=== PATIENT | female | born 1950 | race Hispanic/Latino ===

== ENCOUNTER 2020-09-24 12:43 | Observation (INO) | payer MEDICARE ==
[~2020-09-24] VITALS: Ht 152.4 cm; Wt 64.0 kg
[2020-09-24 13:24] LABS: BASOPHILS % (AUTO) 0.6 % (0.0-5.0); EOSINOPHILS % (AUTO) 1.1 % (0.0-8.0); HEMATOCRIT 41.2 % (36-48); LYMPHOCYTES % (AUTO) 14.4 % (21.0-51.0); MEAN CORPUSCULAR HEMOGLOBIN 30.5 pg (27.0-33.0); MEAN CORPUSCULAR HGB CONC 34.2 g/dL (32.0-36.0); MONOCYTES % (AUTO) 11.7 % (3.0-13.0); PLATELET COUNT (AUTO) 74 K/uL (130-400); RED BLOOD CELL COUNT(AUTO) 4.63 MIL/uL (4.00-5.50); RED CELL DISTRIBUTION WIDTH 13.4 % (11.0-15.5); WHITE BLOOD COUNT (AUTO) 5.4 K/uL (4.8-10.8)
[2020-09-24 13:31] LABS: INR 1.14 (0.85-1.15); PROTHROMBIN TIME 12.3 SEC (9.6-11.6)
[2020-09-24 13:33] LABS: PARTIAL THROMBOPLASTIN TIME 27.7 SEC (26.3-35.5)
[2020-09-24 13:36] LABS: CREATININE 0.9 mg/dL (0.5-1.5); POTASSIUM 3.7 mmol/L (3.5-5.1)
[2020-09-24 13:40] LABS: ALBUMIN 3.6 g/dL (3.5-5.0); BILIRUBIN,TOTAL 0.6 mg/dL (0.2-1.0); TOTAL PROTEIN, SERUM 8.8 g/dL (6.0-8.3)
[2020-09-24] MEDS ORDERED: IOHEXOL-350 75 ML VIAL IV ONE (14:47)
[2020-09-24] MEDS ORDERED: LABETALOL HCL 5 MG/ML 20ML VIAL IV PRN (16:15)
[2020-09-24 16:25] LABS: APPEARANCE,URINE Clear (CLEAR); BILIRUBIN,URINE Negative (NEGATIVE); COLOR,URINE Yellow (YELLOW); GLUCOSE, URINE (UA) >=1000 mg/dL (NEGATIVE); KETONES,URINE Trace mg/dL (NEGATIVE); LEUKOCYTE ESTERASE ,URINE Negative (NEGATIVE); NITRATE,URINE Negative (NEGATIVE); OCCULT BLOOD,URINE Negative (NEGATIVE); PH,URINE 6.5 (5.0-8.0); PROTEIN,URINE POS 2+ mg/dL (NEGATIVE); UROBILINOGEN,URINE 0.2 mg/dL (0.2-1.0)
[2020-09-24 16:31] LABS: AMPHET/METH SCREEN,URINE NEGATIVE (NEGATIVE); BARBITURATE SCREEN, URINE NEGATIVE (NEGATIVE); BENZODIAZEPINES SCREEN,URINE NEGATIVE (NEGATIVE); CANNABINOID SCREEN,URINE NEGATIVE (NEGATIVE); COCAINE SCREEN,URINE NEGATIVE (NEGATIVE); OPIATE SCREEN,URINE NEGATIVE (NEGATIVE); PHENCYCLIDINE SCREEN,URINE NEGATIVE (NEGATIVE)
[2020-09-24 16:34] LABS: BACTERIA,URINE Rare /HPF (None Seen); RBC,URINE 0-1 /HPF (0-1); SQUAMOUS EPITHELIAL CELL,UR None Seen /HPF (0-2); WBC,URINE None Seen /HPF (0-1)
[2020-09-24] MEDS ORDERED: CLOPIDOGREL BISULFATE 75 MG TAB ONE (16:53)
[2020-09-24] MEDS ORDERED: CLOPIDOGREL BISULFATE 75 MG TAB PO SCH (17:30)
[2020-09-24 22:00] VITALS: BP 146/62
[2020-09-24] MEDS ORDERED: SITA1TAB6 PO (22:31)
[2020-09-24] MEDS ORDERED: LISI20TA24 PO (22:33)
[2020-09-24] MEDS ORDERED: ATORVAS (22:33)
[2020-09-24] MEDS ORDERED: GLYBURIDE (22:33)
[2020-09-25 04:00] VITALS: BP 114/57
[2020-09-25 06:22] LABS: BASOPHILS % (AUTO) 0.8 % (0.0-5.0); EOSINOPHILS % (AUTO) 3.3 % (0.0-8.0); HEMATOCRIT 40.8 % (36-48); MEAN CORPUSCULAR HEMOGLOBIN 29.9 pg (27.0-33.0); MEAN CORPUSCULAR HGB CONC 33.1 g/dL (32.0-36.0); MEAN CORPUSCULAR VOLUME 90.3 fL (79-99); MONOCYTES % (AUTO) 13.4 % (3.0-13.0); NEUTROPHILS % (AUTO) 51.3 % (40.0-77.0); PLATELET COUNT (AUTO) 74 K/uL (130-400); RED BLOOD CELL COUNT(AUTO) 4.52 MIL/uL (4.00-5.50); RED CELL DISTRIBUTION WIDTH 13.4 % (11.0-15.5); WHITE BLOOD COUNT (AUTO) 4.8 K/uL (4.8-10.8)
[2020-09-25 06:47] LABS: CREATININE 0.7 mg/dL (0.5-1.5); POTASSIUM 3.2 mmol/L (3.5-5.1)
[2020-09-25 06:58] LABS: HEMOGLOBIN A1C 8.5 % (4.0-6.0)
[2020-09-25] MEDS ORDERED: POTASSIUM CHLORIDE 20MEQ/100ML 100 ML IV PRN (07:00)
[2020-09-25] MEDS ORDERED: LIDOCAINE HCL-MPF 1% 2ML VIAL IV PRN (07:00)
[2020-09-25] MEDS: CLOPIDOGREL BISULFATE 75 MG TAB PO SCH (08:17)
[2020-09-25] MEDS: ASPIRIN 81MG TAB.CHEW PO SCH (08:17)
[2020-09-25 08:45] VITALS: BP 126/69
[2020-09-25 12:54] VITALS: BP 123/72
[2020-09-25] MEDS: INSULIN HUMULIN R 100 UNIT/ML 3ML SQ SCH ×2 (16:15→20:53)
[2020-09-25 17:52] VITALS: BP 118/71
[2020-09-25 20:11] VITALS: BP 131/75
[2020-09-25] MEDS: SITAGLIPTIN PHOS PO SCH (20:53)
[2020-09-25] MEDS: METFORMIN HCL PO SCH (20:53)
[2020-09-25 23:27] VITALS: BP 131/72
[2020-09-26 04:13] VITALS: BP 124/78
[2020-09-26 06:05] VITALS: BP 130/69
[2020-09-26] MEDS: INSULIN HUMULIN R 100 UNIT/ML 3ML SQ SCH ×2 (06:09→11:30)
[2020-09-26] MEDS: CLOPIDOGREL BISULFATE 75 MG TAB PO SCH (07:42)
[2020-09-26] MEDS: METFORMIN HCL PO SCH (07:42)
[2020-09-26] MEDS: SITAGLIPTIN PHOS PO SCH (07:42)
[2020-09-26] MEDS: ASPIRIN 81MG TAB.CHEW PO SCH (07:42)
[2020-09-26 10:58] VITALS: BP 142/78
== END 2020-09-26 13:28 | disposition home or self-care (01) ==
LOC: EDH 12:43 → EDHIP 16:07 → 4CH 21:01
PROVIDERS: ADMIT Internal Medicine; ATTEND Internal Medicine
DX: G45.9 Transient cerebral ischemic attack, unspecified (principal); R51.9 Headache, unspecified; E87.1 Hypo-osmolality and hyponatremia; E11.65 Type 2 diabetes mellitus with hyperglycemia; I10 Essential (primary) hypertension; E78.5 Hyperlipidemia, unspecified; I34.0 Nonrheumatic mitral (valve) insufficiency; Z90.710 Acquired absence of both cervix and uterus; Z98.51 Tubal ligation status; Z79.84 Long term (current) use of oral hypoglycemic drugs; Z79.899 Other long term (current) drug therapy
CPT/HCPCS: 36415 ×2; 70450; 70496; 70498; 70551; 71045; 80048; 80053; 80305; 81001; 82550; 82948 ×6; 83036; 83721; 84484; 85025 ×2; 85610; 85730; 92610; 93005; 93306; 93356; 97161; 99285; G0378 ×43; G8978; G8979; G8980; G8981; G8982; G8983; Q9967

== ENCOUNTER 2020-10-28 15:08 | Emergency (ER) | payer MEDICARE ==
[~2020-10-28 15:08] MED LIST: ATORVAS; GLYBURIDE; LISI20TA24 PO; SITA1TAB6 PO
[2020-10-28 15:51] LABS: BASOPHILS % (AUTO) 0.8 % (0.0-5.0); EOSINOPHILS % (AUTO) 1.7 % (0.0-8.0); HEMATOCRIT 42.7 % (36-48); LYMPHOCYTES % (AUTO) 41.2 % (21.0-51.0); MEAN CORPUSCULAR HEMOGLOBIN 29.9 pg (27.0-33.0); MEAN CORPUSCULAR HGB CONC 33.5 g/dL (32.0-36.0); MEAN CORPUSCULAR VOLUME 89.3 fL (79-99); MONOCYTES % (AUTO) 8.8 % (3.0-13.0); NEUTROPHILS % (AUTO) 47.5 % (40.0-77.0); PLATELET COUNT (AUTO) 112 K/uL (130-400); RED BLOOD CELL COUNT(AUTO) 4.78 MIL/uL (4.00-5.50); WHITE BLOOD COUNT (AUTO) 6.1 K/uL (4.8-10.8)
[2020-10-28] MEDS ORDERED: FAMOTIDINE/PF 20 MG/2 ML VIAL IV ONE (15:51)
[2020-10-28 15:57] LABS: CREATININE 0.9 mg/dL (0.5-1.5); POTASSIUM 3.7 mmol/L (3.5-5.1)
[2020-10-28 16:02] LABS: ALBUMIN 3.6 g/dL (3.5-5.0); BILIRUBIN,TOTAL 0.4 mg/dL (0.2-1.0); TOTAL PROTEIN, SERUM 9.4 g/dL (6.0-8.3)
== END 2020-10-28 18:35 | disposition home or self-care (01) ==
LOC: EDH 15:08
DX: K80.50 Calculus of bile duct without cholangitis or cholecystitis without obstruction (principal); E11.65 Type 2 diabetes mellitus with hyperglycemia; E86.0 Dehydration
CPT/HCPCS: 36415; 74176; 80053; 85025; 96374; 99284; J3490

== ENCOUNTER → 2022-05-01 | Outpatient (CLI) | payer MEDICARE ==
[2022-05-01 15:00] LABS: BASOPHILS % (AUTO) 0.8 % (0.0-5.0); EOSINOPHILS % (AUTO) 3.5 % (0.0-8.0); HEMATOCRIT 42.1 % (36-48); LYMPHOCYTES % (AUTO) 35.1 % (21.0-51.0); MEAN CORPUSCULAR HEMOGLOBIN 30.5 pg (27.0-33.0); MEAN CORPUSCULAR HGB CONC 33.7 g/dL (32.0-36.0); MEAN CORPUSCULAR VOLUME 90.3 fL (79-99); MONOCYTES % (AUTO) 7.6 % (3.0-13.0); NEUTROPHILS % (AUTO) 52.8 % (40.0-77.0); PLATELET COUNT (AUTO) 100 K/uL (130-400); RED BLOOD CELL COUNT(AUTO) 4.66 MIL/uL (4.00-5.50); RED CELL DISTRIBUTION WIDTH 13.5 % (11.0-15.5); WHITE BLOOD COUNT (AUTO) 4.9 K/uL (4.8-10.8)
[2022-05-01 15:06] LABS: INR 1.14 (0.85-1.15); PROTHROMBIN TIME 12.3 SEC (9.6-11.6)
[2022-05-01 15:16] LABS: ALBUMIN 3.4 g/dL (3.5-5.0); CREATININE 0.9 mg/dL (0.5-1.5); POTASSIUM 3.7 mmol/L (3.5-5.1); TOTAL PROTEIN, SERUM 9.1 g/dL (6.0-8.3)
[2022-05-02 03:14] LABS: HEPATITIS B SURFACE ANTIGEN Non-Reactive (Nonreactive); HEPATITIS C ANTIBODY Non-Reactive (Nonreactive)
[2022-05-03 06:12] LABS: HEPATITIS A ANTIBODY TOTAL Positive (Negative)
== END | disposition home or self-care (01) ==
LOC: LAB 13:38
PROVIDERS: ATTEND Internal Medicine Gastroenterology
DX: K62.1 Rectal polyp (principal); K62.9 Disease of anus and rectum, unspecified; R94.5 Abnormal results of liver function studies
CPT/HCPCS: 36415; 80053; 82378; 85025; 85610; 85730; 86706; 86707; 86708; 87340; 87520

== ENCOUNTER → 2022-05-16 | Outpatient (CLI) | payer MEDICARE ==
[~2022-05-16] MED LIST changes: +IOHEXOL 350 MG/ML 100ML INFUS..BTL IV ONE
== END | disposition home or self-care (01) ==
LOC: RAH 10:36
PROVIDERS: ATTEND Internal Medicine Gastroenterology
DX: K62.1 Rectal polyp (principal); K62.9 Disease of anus and rectum, unspecified
CPT/HCPCS: 71270; 74178; Q9967

== ENCOUNTER 2022-12-20 16:56 | Emergency (ER) | payer MEDICARE, OTHER ==
[~2022-12-20] VITALS: Ht 154.9 cm; Wt 59.0 kg
[~2022-12-20 16:56] MED LIST changes: -IOHEXOL 350 MG/ML 100ML INFUS..BTL IV ONE
[2022-12-20 17:57] LABS: BASOPHILS % (AUTO) 0.5 % (0.0-5.0); HEMATOCRIT 39.3 % (36-48); LYMPHOCYTES % (AUTO) 16.9 % (21.0-51.0); MEAN CORPUSCULAR HEMOGLOBIN 31.2 pg (27.0-33.0); MEAN CORPUSCULAR HGB CONC 33.8 g/dL (32.0-36.0); MEAN CORPUSCULAR VOLUME 92.3 fL (79-99); MONOCYTES % (AUTO) 13.7 % (3.0-13.0); NEUTROPHILS % (AUTO) 68.6 % (40.0-77.0); PLATELET COUNT (AUTO) 48 K/uL (130-400); RED BLOOD CELL COUNT(AUTO) 4.26 MIL/uL (4.00-5.50); RED CELL DISTRIBUTION WIDTH 13.7 % (11.0-15.5); WHITE BLOOD COUNT (AUTO) 6.5 K/uL (4.8-10.8)
[2022-12-20 18:08] LABS: CREATININE 0.9 mg/dL (0.5-1.5); POTASSIUM 3.9 mmol/L (3.5-5.1)
[2022-12-20 18:13] LABS: ALBUMIN 2.9 g/dL (3.5-5.0); TOTAL PROTEIN, SERUM 8.5 g/dL (6.0-8.3)
[2022-12-20] MEDS ORDERED: KETOROLAC 30MG VIAL (30MG/ML) IVP ONE (19:00)
[2022-12-20] MEDS ORDERED: BENZONATATE 100 MG CAPSULE PO ONE (19:00)
[2022-12-20] MEDS ORDERED: LACTATED RINGERS 1000ML 1,000 ML IV ONE (19:00)
[2022-12-20] MEDS ORDERED: METOCLOPRAMIDE 10 MG/2 ML VIAL IVP ONE (19:00)
[2022-12-20] MEDS ORDERED: ALBUTEROL 0.083% 2.5 MG/3 ML INH IH ONE (19:00)
[2022-12-20] MEDS ORDERED: DEXAMETHASONE SOD PHOSPHATE 4 MG/ML 1ML VIAL IV ONE (19:00)
[2022-12-20] MEDS ORDERED: FAMOTIDINE 20MG VIAL IV ONE (19:00)
[2022-12-20] MEDS ORDERED: BENZ-39 PO (19:45)
[2022-12-20] MEDS ORDERED: ALBUHFA IH (19:45)
[2022-12-20 19:58] VITALS: PULSE 95; RESP 18
[2022-12-20] MEDS ORDERED: ACETAMINOPHEN 500 MG TABLET PO ONE (20:00)
[2022-12-20 20:29] VITALS: BP 132/70; PULSE 89; RESP 18
[2022-12-20 20:31] VITALS: TEMP 98.8
== END 2022-12-20 20:32 | disposition home or self-care (01) ==
LOC: EDH 16:56
DX: U07.1 COVID-19 (principal); G44.209 Tension-type headache, unspecified, not intractable; E11.9 Type 2 diabetes mellitus without complications; E78.00 Pure hypercholesterolemia, unspecified; I10 Essential (primary) hypertension; Z79.84 Long term (current) use of oral hypoglycemic drugs; Z79.899 Other long term (current) drug therapy
CPT/HCPCS: 99284; 70450; 96374; 96375; 71045; 96361; 80053; 85025; 36415; 72125; 94640; J1100; J7120; J3490; J1885; J2765

== ENCOUNTER 2024-08-05 15:47 | Observation (INO) | payer OTHER, MEDICARE ==
[~2024-08-05] VITALS: Ht 154.9 cm; Wt 66.7 kg
[~2024-08-05 15:47] MED LIST changes: +ALBUHFA IH; +ALEN70TA80 PO; +AMOX-426 PO; +ATOR40TA71 PO; +BENZ-39 PO; +FURO20TA4 PO; +INSU100I3 SQ; +INSU3INS3 SQ; +LACT PO; +LIRA0.6P SQ; +LISI10TA24 PO; +METF-446 PO; +OMEP20CA12 PO
[2024-08-05 17:07] LABS: BASOPHILS # (AUTO) 0.04 K/uL (0.00-0.20); BASOPHILS % (AUTO) 0.6 % (0.0-5.0); EOSINOPHILS # (AUTO) 0.13 K/uL (0.00-0.70); EOSINOPHILS % (AUTO) 2.1 % (0.0-8.0); HEMATOCRIT 31.8 % (36-48); IMMATURE GRANULOCYTE ABSOLUTE 0.01 K/uL (0-1); LYMPHOCYTES # (AUTO) 1.5 K/uL (1.0-4.8); LYMPHOCYTES % (AUTO) 24.3 % (21.0-51.0); MEAN CORPUSCULAR HEMOGLOBIN 32.2 pg (27.0-33.0); MEAN CORPUSCULAR VOLUME 97.5 fL (79-99); MONOCYTES # (AUTO) 0.8 K/uL (0.1-1.0); MONOCYTES % (AUTO) 13.4 % (3.0-13.0); NEUTROPHILS # (AUTO) 3.7 K/uL (1.8-7.7); NEUTROPHILS % (AUTO) 59.4 % (40.0-77.0); PLATELET COUNT (AUTO) 53 K/uL (130-400); RED BLOOD CELL COUNT(AUTO) 3.26 MIL/uL (4.00-5.50); RED CELL DISTRIBUTION WIDTH 15.1 % (11.0-15.5); WHITE BLOOD COUNT (AUTO) 6.3 K/uL (4.8-10.8)
[2024-08-05 17:25] LABS: BILIRUBIN,TOTAL 2.9 mg/dL (0.2-1.0); CREATININE 1.4 mg/dL (0.5-1.0); TOTAL PROTEIN, SERUM 7.8 g/dL (6.0-8.3)
[2024-08-05 18:14] LABS: APPEARANCE,URINE CLEAR (CLEAR); BILIRUBIN,URINE NEGATIVE (NEGATIVE); COLOR,URINE YELLOW (YELLOW); GLUCOSE, URINE (UA) NEGATIVE (NEGATIVE); KETONES,URINE NEGATIVE (NEGATIVE); LEUKOCYTE ESTERASE ,URINE 25 Leu/uL (NEGATIVE); NITRATE,URINE NEGATIVE (NEGATIVE); OCCULT BLOOD,URINE NEGATIVE (NEGATIVE); PROTEIN,URINE NEGATIVE (NEGATIVE); UROBILINOGEN,URINE 0.2 mg/dL (0.2-1.0)
[2024-08-05 18:17] LABS: ADD UA MICROSCOPIC YES
[2024-08-05 18:19] LABS: MUCUS,URINE RARE LPF (None Seen); RBC,URINE 0-1 /HPF (0-1); SQUAMOUS EPITHELIAL CELL,UR RARE /HPF (0-2)
--- NOTE | 2024-08-05 18:35 | ERN ---
General Chief Complaint: Abdominal Pain Stated Complaint: SENT BY PHYS Time Seen by MD: 15:49 Source: patient History of Present Illness Initial Comments PATIENT IS A 73-YEAR-OLD FEMALE COMING IN TO BE EVALUATED FOR ABDOMINAL DISTENTION. PER PATIENT HE WAS STARTED HAVING THIS SYMPTOMS FOR A WHILE BUT GOT WORSE IN THE LAST COUPLE OF DAYS. PATIENT DOES HAVE A HISTORY OF LIVER C IRRHOSIS IN HIS HERE FOR PARACENTESIS. Allergies: Coded Allergies: No Known Allergies (Verified Allergy, Unknown, 09/24/20) Home Meds Active Scripts Amoxicillin/Potassium Clav (Augmentin 500-125 Tablet) 500 Mg-125 Mg Tablet, 1 TAB PO BID for 7 Days, #14 TAB 0 Refills Prov:ANTHONY CASTRO MD 07/10/24 Lactulose (Cephulac/Enulose Soln) 20 Gram/30 Ml Soln, 20 GM PO BID, #20 ML Prov:ANTHONY CASTRO MD 07/10/24 Benzonatate (Tessalon Perles) 100 Mg Cap, 100 MG PO TID for cough, #30 CAP 2 Refills Prov:ADAM GALLO Sr., MD 12/20/22 Albuterol Sulfate (Ventolin Hfa/Proventil Hfa/Proair Hfa) 90 Mcg/Puff Puff, 2 PUFF IH Q4H PRN for SHORTNESS OF BREATH/WHEEZING for 30 Days, #1 INH 2 Refills Prov:ADAM GALLO Sr., MD 12/20/22 Reported Medications Omeprazole (Omeprazole) 20 Mg Capsule.dr, 20 MG PO DAILY 07/08/24 Furosemide (Furosemide) 20 Mg Tablet, 1 TAB PO BID 07/08/24 Alendronate Sodium (Alendronate Sodium) 70 Mg Tablet, 1 TAB PO QWEEK 07/08/24 Atorvastatin Calcium (Atorvastatin Calcium) 40 Mg Tablet, 40 MG PO HS 07/08/24 Lisinopril (Lisinopril) 10 Mg Tablet, 10 MG PO DAILY 07/08/24 Liraglutide (Victoza 2-Boyd) 0.6 Mg/0.1 Ml (18 Mg/3 Ml) Pen.injctr, 1.6 MG SQ DAILY 07/08/24 Insulin Glargine,Hum.rec.anlog (Lantus Solostar) 100 Unit/Ml (3 Ml) Insuln.pen, 35 UNITS SQ DAILY 07/08/24 Insulin Aspart (Novolog Flexpen) 100 Unit/Ml (3 Ml) Insuln.pen, 12 UNITS SQ TIDMEALS for diabetes mellitus 07/08/24 Metformin HCl (Metformin HCl) 1,000 Mg Tablet, 1000 MG PO BIDMEALS 07/08/24 [Atorvas] No Conflict Check 09/24/20 Lisinopril (Lisinopril) 20 Mg Tablet, 20 MG PO DAILY, TAB 09/24/20 [Glyburide] No Conflict Check 09/24/20 Sitagliptin Phos/Metformin HCl (Janumet 50-1,000 mg Tablet) 1 Each Tablet, 1 EACH PO BID, TAB 09/24/20 Past Medical History Past Medical History: Diabetes-Type II, High Cholesterol, Hypertension Past Surgical History: None Social History Social History: Negative, Lives with family ROS Dictation CONSTITUTIONAL: NO CHILLS, NO FEVER, NO WEAKNESS, NO DIAPHORESIS, NO MALAISE. HEAD/FACE: NO SIGNS OF TRAUMA. EENT: NO EYE PAIN, NO BLURRED VISION, NO TEARING, NO DOUBLE VISION, NO EAR PAIN, NO EAR DISCHARGE, NO NOSE PAIN, NO NASAL CONGESTION, NO THROAT PAIN, NO THROAT SWELLING, NO MOUTH PAIN. RESPIRATORY: NO COUGH, NO ORTHOPNEA, NO SOB, NO STRIDOR, NO WHEEZING. CARDIOVASCULAR: NO CHEST PAIN, NO EDEMA, NO PALPITATIONS, NO SYNCOPE. GASTROINTESTINAL/ABDOMINAL: NO ABDOMINAL PAIN, NO CONSTIPATION, NO DIARRHEA, NO NAUSEA, NO VOMITING. GENITOURINARY: NO ABNORMAL DISCHARGE, NO DYSURIA, NO FREQUENT URINATION, NO HEMATURIA. NO COMPLAINTS OF PAIN IN THE GENITALS. MUSCULOSKELETAL: NO BACK PAIN, NO GOUT, NO JOINT PAIN, NO JOINT SWELLING, NO MUSCLE PAIN, NO MUSCLE STIFFNESS, NO NECK PAIN. INTEGUMENTARY: NO CHANGE IN COLOR, NO CHANGE IN HAIR/NAILS, NO DRYNESS, NO LESION, NO LUMPS, NO RASH. NEUROLOGICAL/PSYCH: NO ANXIETY, NOT DEPRESSED, NO EMOTIONAL PROBLEM, NO HEADACHE, NO NUMBNESS, NO PRE-EXISTING DEFICIT, NO HISTORY OF SEIZURES, NO TREMORS, NO WEAKNESS. HEMATOLOGIC/LYMPHATIC: NOT ANEMIC, NO HISTORY OF BLOOD CLOTS, NO APPARENT BLEEDING, NO BRUISING, GLANDS NOT SWOLLEN. ALL SYSTEMS NEGATIVE, EXCEPT NOTED. Physical Exam Physical Exam Dictation VITAL SIGNS: REVIEWED. GENERAL APPEARANCE: ALERT, ORIENTED X3, NO ACUTE DISTRESS, OBESE. HEAD AND FACE: NON-TRAUMATIC. EYES: PERRL, PINK CONJUNCTIVAS, EYELID NO TRAUMA, ANTERIOR CHAMBER CLEAR. EARS: PINNAS INTACT AND NO SIGNS OF TRAUMA OR ERYTHEMA. EAR CANALS CLEAR AND NO DISCHARGE. TMS NO ERYTHEMA. NOSE: NO DISCHARGE, NO BLEEDING. OROPHARYNX: MOUTH NORMAL, TEETH NO CARIES, TONGUE PINK. PHARYNX CLEAR, NO ERYTHEMA. TONSILS NO EXUDATES, NO ABSCESSES NOTED. MUCOUS MEMBRANE MOIST. NECK: SUPPLE, NON-TENDER, NO THYROMEGALY, NO MASSES, NO JVD, NO BRUITS. BREAST: DEFERRED. CHEST: NO TENDERNESS, NO CREPITUS, NO PARADOXICAL MOVEMENT, NO RETRACTIONS. LUNGS: CLEAR, WELL-VENTILATED, SYMMETRIC, NO RALES, NO WHEEZING, NO RHONCHI, NO STRIDOR, GOOD BREATH SOUNDS BILATERALLY. HEART: REGULAR RATE, REGULAR RHYTHM, NO MURMUR, NO GALLOPS. VASCULAR: NO PERIPHERAL EDEMA. ABDOMEN: SOFT, POSITIVE BOWEL SOUNDS, NONDISTENDED, NO GUARDING, NONTENDER, NO REBOUND, NO MASSES NO HEPATOMEGALY, NO SPLENOMEGALY, NO SAGE'S SIGN, NO HERNIAS. RECTAL: DEFERRED. GENITAL: DEFERRED. NEUROLOGICAL: NORMAL SPEECH, GROSS MOTOR FUNCTION INTACT, GROSS SENSORY FUNCTION INTACT. MUSCULOSKELETAL: NECK NONTENDER, FULL RANGE OF MOTION, BACK NONTENDER, FULL RANGE OF MOTION. EXTREMITIES: NONTENDER, FULL RANGE OF MOTION. SKIN: COLOR PINK, DRY, NO TURGOR, NO RASH, NO LACERATIONS, NO ABRASIONS, NO CONTUSIONS. LYMPHATICS: DEFERRED. Results Laboratory and Microbiology Lab and Micro Result Laboratory Tests Test 08/05/24 16:55 08/05/24 18:03 White Blood Count 6.3 K/uL (4.8-10.8) Red Blood Count 3.26 MIL/uL (4.00-5.50) L Hemoglobin 10.5 g/dL (12.0-16.0) L Hematocrit 31.8 % (36-48) L Mean Corpuscular Volume 97.5 fL (79-99) Mean Corpuscular Hemoglobin 32.2 pg (27.0-33.0) Mean Corpuscular Hemoglobin Concent 33.0 g/dL (32.0-36.0) Red Cell Distribution Width 15.1 % (11.0-15.5) Platelet Count 53 K/uL (130-400) L Mean Platelet Volume 11.4 fL (7.5-10.5) H Immature Granulocyte % (Auto) 0.2 % (0-1) Neutrophils (%) (Auto) 59.4 % (40.0-77.0) Lymphocytes (%) (Auto) 24.3 % (21.0-51.0) Monocytes (%) (Auto) 13.4 % (3.0-13.0) H Eosinophils (%) (Auto) 2.1 % (0.0-8.0) Basophils (%) (Auto) 0.6 % (0.0-5.0) Neutrophils # (Auto) 3.7 K/uL (1.8-7.7) Lymphocytes # (Auto) 1.5 K/uL (1.0-4.8) Monocytes # (Auto) 0.8 K/uL (0.1-1.0) Eosinophils # (Auto) 0.13 K/uL (0.00-0.70) Basophils # (Auto) 0.04 K/uL (0.00-0.20) Absolute Immature Granulocyte (auto 0.01 K/uL (0-1) Nucleated Red Blood Cells 0.0 % (0.0-0.19) Platelet Morphology Comment See comments Sodium Level 132 mmol/L (136-145) L Potassium Level 3.0 mmol/L (3.5-5.1) *L Chloride Level 100 mmol/L (101-111) L Carbon Dioxide Level 25 mmol/L (21-32) Blood Urea Nitrogen 19 mg/dL (7-18) H Creatinine 1.4 mg/dL (0.5-1.0) H Glomerular Filtration Rate Calc 40 mL/min (>90) Random Glucose 91 mg/dL (70-105) Total Calcium 7.8 mg/dL (8.5-10.1) L Total Bilirubin 2.9 mg/dL (0.2-1.0) H Aspartate Amino Transf (AST/SGOT) 108 U/L (10-37) H Alanine Aminotransferase (ALT/SGPT) 49 U/L (12-78) Alkaline Phosphatase 113 U/L (50-136) Total Creatine Kinase 288 U/L (21-232) H Total Protein 7.8 g/dL (6.0-8.3) Albumin 2.0 g/dL (3.5-5.0) L Lipase 133 U/L (16-77) H Urine Color YELLOW (YELLOW) Urine Appearance CLEAR (CLEAR) Urine pH 6.0 (5.0-8.0) Urine Specific [place] 1.014 (1.001-1.031) Urine Protein NEGATIVE mg/dL (NEGATIVE) Urine Glucose (UA) NEGATIVE mg/dL (NEGATIVE) Urine Ketones NEGATIVE mg/dL (NEGATIVE) Urine Occult Blood NEGATIVE (NEGATIVE) Urine Nitrate NEGATIVE (NEGATIVE) Urine Bilirubin NEGATIVE mg/dL (NEGATIVE) Urine Urobilinogen 0.2 mg/dL (0.2-1.0) Urine Leukocyte Esterase 25 Sherita/uL (NEGATIVE) H Urine RBC 0-1 /HPF (0-1) Urine WBC 2-5 /HPF (0-1) H Urine Squamous Epithelial Cells RARE /HPF (0-2) Urine Bacteria None /HPF (None Seen) Labs Reviewed?: Yes MDM MDM: DIFFERENTIAL DIAGNOSIS: LIVER CIRRHOSIS WITH ASCITES RATIONALE: TESTS CONSIDERED AND ORDERED SECONDARY TO SHARED DECISION MAKING INCLUDE: LABS, ECG AND RADIOLOGY PREVIOUS OUTSIDE RECORDS REVIEWED: OLD ER VISITS. RISK OF COMPLICATION AND/OR MORBIDITY OR MORTALITY OF PATIENT MANAGEMENT: NONE MEDICATIONS-PER MEDICATION RECONCILIATION NEED FOR HOSPITALIZATION: PATIENT DOES MEET CRITERIA FOR HOSPITALIZATION. NEED FOR EMERGENCY MAJOR/MINOR SURGERY: NO THERE ARE NO SOCIAL CONCERNS WITH THIS PATIENT. PRESCRIPTION DRUG MANAGEMENT PRESCRIPTIONS WILL INCLUDE SYMPTOMATIC CARE PATIENT'S PRIOR EXTERNAL MEDICAL RECORDS FROM OTHER ER VISITS WERE REVIEWED BY Jovan Collazo INDICATED. PRIOR TESTING AND RESULTS FROM PREVIOUS VISITS WERE REVIEWED. PRIOR TESTS WERE TAKEN INTO ACCOUNT WITH MEDICAL DECISION MAKING AND RESOURCE UTILIZATION, INDEPENDENT HISTORIAN/HISTORIANS WERE USED TO OBTAIN COMPLETE MEDICAL HISTORY. I INDEPENDENTLY INTERPRETED THE TEST THAT WERE PERFORMED, RESULTS WERE REVIEWED BY ME AND CONSIDERED FINDINGS ON RADIOLOGY IF ORDERED. MEDICAL MANAGEMENT AND EXAMINATION INTERPRETATION DISCUSSIONS WERE HAD BY ME WITH OTHER QUALIFIED HEALTHCARE PROFESSIONALS INDICATED FOR THE PATIENT'S CARE. PATIENT IS A 73-YEAR-OLD FEMALE COMING IN TO BE EVALUATED FOR ABDOMINAL DISTENTION. PATIENT STATES HER PCP SENT HER IN FOR A PARACENTESIS. PATIENT WILL BE ADMITTED UNDER THE CARE OF HOSPITALIST GROUP FOR ONGOING MANAGEMENT. ED Course Orders Procedure Category Date Status Time Cbc With Differential LAB 08/05/24 Complete 16:21 Comprehensive LAB 08/05/24 Complete Metabolic Panel 16:21 Urinalysis Profile LAB 08/05/24 Complete 16:21 Creatine Kinase, Total LAB 08/05/24 Complete 16:21 Lipase LAB 08/05/24 Complete 16:21 Potassium Bicarb/Cit PHA 08/05/24 Complete Ac 25meq (K-Lyte Ta 18:30 Current Medications Medications (Trade) Dose Ordered Sig/Sergey Route PRN Reason Start Time Stop Time Status Last Admin Dose Admin Potassium Bicarbonate (K-Lyte Tablet Eff 25 Meq Tablet.eff) 50 meq ONCE ONCE PO 08/05/24 18:30 08/05/24 18:31 DC 08/05/24 18:36 Vital Signs Date Time Temp Pulse Resp B/P (MAP) Pulse Ox O2 Delivery O2 Flow Rate FiO2 08/05/24 18:14 97.5 87 20 136/65 100 Room Air* 0 21 08/05/24 15:51 97.9 82 18 134/61 99 Room Air DX & DISP Disposition: Inpatient Decision to Admit Time: 18:58 Departure Impression: Primary Impression: Liver cirrhosis Additional Impression: Ascites Condition: Stable Referrals: MOHAMUD SANDERS MD (PCP) BERONICA HERNANDEZ MD Aug 05, 2024 18:35
[2024-08-05] MEDS: PoTASSium BIcarbonate/CIT AC 25 MEQ TABLET.EFF PO ONE (18:36)
--- NOTE | 2024-08-05 19:21 | HP ---
History of Present Illness Reason for Visit: abdominal pain History of Present Illness Ms. Lyn is a 73-year-old female that was seen and examined today on 08/05/2024. Patient is a good historian of personal health Patient states that she came to the emergency department with a chief complaint of abdominal pain. Onset was three days ago. Location is to all four quadrants. Duration is on and off. Symptoms are aggravated with drinking water or eating food. There was no alleviating factors. Character is described as, "like my stomach is swollen. "Patient denies any associated nausea or vomiting. Today in the emergency department platelets 53, potassium 3.0, creatinine 1.6, BUN 19, total bilirubin 2.9, urinalysis is unremarkable. Emergency room physician recommended that patient be admitted with a diagnosis of ascites. Plan is for evaluation by Interventional Radiology for paracentesis in the a.m.. Past Medical History Patient History: Cardiovascular disease FATHER Diabetes mellitus MOTHER SISTER FH: liver disease MOTHER Hypertension FATHER ADDITIONAL PAST MEDICAL HISTORY: [Hypertension, Diabetes mellitius type2, hyperlipidemia, liver cirrhosis] SOCIAL HISTORY: [[Negative for smoking, alcohol use, drug use. Patient lives alone. Patient is a retired fine arts chair. Patient has good access to health care through her insurance. Patient is typically independent of all her ADLs. Patient denies difficulty paying her bills.]] SURGICAL HISTORY: Denies Review of Systems General: No Fever, No Chills, No Night Sweats, No Fatigue, No Malaise, No Appetite, No Other HEENT: No Head Aches, No Visual Changes, No Eye Pain, No Ear Pain, No Dysphasia, No Sinus Congestion, No Post Nasal Drip, No Sore Throat, No Other Pulmonary: No Dyspnea, No Cough, No Pleuritic Chest Pain, No Other Cardiovascular: No: Chest Pain, Palpitations, Orthopnea, Paroxysmal Noc. Dyspnea, Edema, Lt Headedness, Other Gastrointestinal: Abdominal Pain; No: Nausea, Vomiting, Diarrhea, Constipation, Melena, Hematochezia, Other Genitourinary: No Dysuria, No Frequency, No Incontinence, No Hematuria, No Retention, No Other Musculoskeletal: No: other, neck pain, shoulder pain, arm pain, back pain, hand pain, leg pain, foot pain Skin: No Urticaria, No Rash, No Other Neurological: No: Weakness, Numbness, Incoordination, Change in speech, Confusion, Seizures, Other Allergies: Coded Allergies: No Known Allergies (Verified Allergy, Unknown, 09/24/20) Scheduled Alendronate Sodium (Alendronate Sodium), 1 TAB PO QWEEK, (Reported) Amoxicillin/Potassium Clav (Augmentin 500-125 Tablet), 1 TAB PO BID Atorvastatin Calcium (Atorvastatin Calcium), 40 MG PO HS, (Reported) Benzonatate (Tessalon Perles), 100 MG PO TID Furosemide (Furosemide), 1 TAB PO BID, (Reported) Insulin Aspart (Novolog Flexpen), 12 UNITS SQ TIDMEALS, (Reported) Insulin Glargine,Hum.rec.anlog (Lantus Solostar), 35 UNITS SQ DAILY, (Reported) Lactulose (Cephulac/Enulose Soln), 20 GM PO BID Liraglutide (Victoza 2-Boyd), 1.6 MG SQ DAILY, (Reported) Lisinopril (Lisinopril), 20 MG PO DAILY, (Reported) Lisinopril (Lisinopril), 10 MG PO DAILY, (Reported) Metformin HCl (Metformin HCl), 1,000 MG PO BIDMEALS, (Reported) Omeprazole (Omeprazole), 20 MG PO DAILY, (Reported) Sitagliptin Phos/Metformin HCl (Janumet 50-1,000 mg Tablet), 1 EACH PO BID, (Reported) Scheduled PRN Albuterol Sulfate (Ventolin Hfa/Proventil Hfa/Proair Hfa), 2 PUFF IH Q4H PRN for SHORTNESS OF BREATH/WHEEZING Miscellaneous Medications [Atorvas], (Reported) [Glyburide], (Reported) Exam Vital Signs Vital Signs Date Time Temp Pulse Resp B/P (MAP) Pulse Ox O2 Delivery O2 Flow Rate FiO2 08/05/24 18:14 97.5 87 20 136/65 100 Room Air* 0 21 General Appearance: Alert, Oriented X3, Cooperative HEENT: Atraumatic, EOMI, Other (Positive icterus) Respiratory: Clear to auscultation, Other (Diminished air entry to bilateral lower lobes) Cardiovascular: Regular rate, Regular rhythm, Normal S1, Normal S2 Abdominal: Normal bowel sounds, Other (Moderate distention) Extremities: No clubbing, No cyanosis, No edema Skin: No significant lesion Neuro: Normal speech, Strength at 5/5 X4 ext, Sensation intact, Cranial nerves 3-12 NL Psych/Mental Status: Mental status NL, Mood NL, Thoughts/Content NL Assessment/Plan ASSESSMENT: [ Acute decompensated liver cirrhosis, POA, unable to calculate MELD score patient missing PT/INR Thrombocytopenia, POA Hypokalemia, POA Acute kidney injury, POA, today creatinine 1.6, on 07/10/2024 creatinine 1.0 Elevated total bilirubin Hypertension Diabetes mellitius type2 Hyperlipidemia] PLAN: [ Admit patient to medical floor as inpatient status. Acute decompensated liver cirrhosis: Check ammonia level, follow up with the results Lactulose 20 g/30 mL by mouth twice daily Monitor intake and output every shift Weight patient daily 1500 mL daily fluid restriction Interventional Radiology consultation for evaluation for potential paracentesis Thrombocytopenia: Avoid anticoagulation during this hospitalization. Hypokalemia: Replace potassium per hospital protocol 1/2 dose Acute kidney injury: Calculate FENA Check urine sodium, creatinine, osmolality Avoid nephrotoxic agents when possible Renally dose all medications when possible Consider consulting Nephrology service if any worsening renal function or evidence of ATN. Monitor patient's labs. Weight patient daily. Monitor intake and output. Diabetes mellitus type 2: Check hemoglobin A1c in a.m. Glucometer checks a.c. and HS 1800 ADA diet once patient is no longer NPO Humulin R sliding scale Hypertension, hyperlipidemia: Consider resuming home medications once they are reconciled. For now, Hydralazine 10 mg IV every 4 hours for systolic blood pressure greater than 160 mmHg GI prophylaxis, Protonix DVT prophylaxis, Robinson's and SCDs avoid anticoagulation at this time due to thrombocytopenia. ADVANCED CARE PLANNING 1. Which of the following were discussed? Hospice Care - Yes Therapeutic options - Yes Advance Directives - Yes- patient does not have any advance directives in place at this time, however her daughter Nena Gates make decisions for her if she becomes unable. Other discussions - patient wishes to remain a full code at this time 2. Discussed with who? Patient 3. Voluntary nature of this service was explained to the patient? Yes 4. Amount of time spent - ___ 17 minutes ____ 5. Reviewed by Physician? (if this service was performed by NPP) Yes This document was generated in part using voice recognition software, occasional wrong word or sound alike substitutions may have occurred due to the inherent limitations of voice recognition software. Read the chart carefully and recognize using context, where the substitutions have occurred. Although every effort was made to edit the content, wood heel finisher and typing errors may occur ATTESTATION BY PHYSICIAN I have seen and examined the patient. I reviewed the documentation, medical decision making, and treatment plan as noted by the mid-level provider above. I agree with the findings and plan of care [facility] Aug 05, 2024 19:20
[2024-08-05] MEDS ORDERED: PoTASSium chloRIDE 10MEQ/100ML 100 ML IV PRN (19:30)
[2024-08-05] MEDS ORDERED: PoTASSium chl 10% ELIXIR 20MEQ 20 MEQ/15 ML UDCUP PO PRN (19:30)
[2024-08-05] MEDS ORDERED: MAGNESIUM 2GM PREMIX 50ML 50 ML IV PRN (19:30)
[2024-08-05] MEDS ORDERED: acetaMINOPHEN 325 MG TAB PO PRN (20:00)
[2024-08-05] MEDS ORDERED: ondanSETRON 4MG INJ IV PRN (20:00)
[2024-08-05] MEDS ORDERED: hydrALAZine 20MG/ML VIAL IV PRN (20:00)
[2024-08-05] MEDS ORDERED: morPHINE 2 MG SYG IVP PRN (20:00)
[2024-08-05 20:01] LABS: CREATININE,URINE RANDOM 144.54 mg/dL (30-135); SODIUM,URINE RANDOM < 13 mmol/l (40-220)
[2024-08-05] MEDS: INSULIN humuLIN R 100 UNIT/ML 3ML SQ SCH (20:54)
[2024-08-05] MEDS: LACTULOSE 20 GM/30 ML UDCUP PO SCH (20:57)
[2024-08-05 21:28] LABS: INR 1.77 (0.85-1.15); PROTHROMBIN TIME 17.7 SEC (9.6-11.6)
[2024-08-05 21:29] LABS: PARTIAL THROMBOPLASTIN TIME 41.7 SEC (26.3-35.5)
[2024-08-05 22:07] LABS: CREATININE 1.2 mg/dL (0.5-1.0); POTASSIUM 3.4 mmol/L (3.5-5.1)
--- NOTE | 2024-08-05 22:44 | NUR ---
per recheck k current lkevel 3.4 no need for additional k at [facility] per dhiraj import/export administrator will recheck in the am
--- NOTE | 2024-08-05 23:41 | NUR ---
transfered care to prashanth at this time
[2024-08-06] VITALS (12 sets, daily range): BP systolic 95–145; BP diastolic 49–80; PULSE 52–87; RESP 16–20; TEMP 97.8–98.3; O2SAT 97–98
[2024-08-06] MEDS ORDERED: LACT-441 PO (04:45)
[2024-08-06] MEDS ORDERED: FURO40TA5 PO (04:45)
[2024-08-06] MEDS ORDERED: LIRA0.6P SQ (04:45)
[2024-08-06] MEDS ORDERED: BENZ-226 PO (04:45)
[2024-08-06 06:18] LABS: BASOPHILS # (AUTO) 0.02 K/uL (0.00-0.20); BASOPHILS % (AUTO) 0.5 % (0.0-5.0); EOSINOPHILS # (AUTO) 0.15 K/uL (0.00-0.70); EOSINOPHILS % (AUTO) 3.6 % (0.0-8.0); HEMATOCRIT 26.4 % (36-48); IMMATURE GRANULOCYTE ABSOLUTE 0.02 K/uL (0-1); LYMPHOCYTES # (AUTO) 1.3 K/uL (1.0-4.8); LYMPHOCYTES % (AUTO) 30.9 % (21.0-51.0); MEAN CORPUSCULAR HEMOGLOBIN 32.9 pg (27.0-33.0); MEAN CORPUSCULAR HGB CONC 34.5 g/dL (32.0-36.0); MEAN CORPUSCULAR VOLUME 95.3 fL (79-99); MONOCYTES # (AUTO) 0.6 K/uL (0.1-1.0); MONOCYTES % (AUTO) 15.6 % (3.0-13.0); NEUTROPHILS % (AUTO) 48.9 % (40.0-77.0); PLATELET COUNT (AUTO) 41 K/uL (130-400); RED BLOOD CELL COUNT(AUTO) 2.77 MIL/uL (4.00-5.50); RED CELL DISTRIBUTION WIDTH 15.1 % (11.0-15.5); WHITE BLOOD COUNT (AUTO) 4.1 K/uL (4.8-10.8)
[2024-08-06 06:31] LABS: HEMOGLOBIN A1C 5.6 % (4.0-6.0)
[2024-08-06 06:33] LABS: CREATININE 1.1 mg/dL (0.5-1.0); MAGNESIUM 1.9 mg/dL (1.80-2.40); PHOSPHORUS 2.9 mg/dL (2.5-4.9); POTASSIUM 3.4 mmol/L (3.5-5.1)
--- NOTE | 2024-08-06 08:34 | PN ---
[facility] PROGRESS NOTE Date of Service: Aug 06, 2024 Time of Service: 08:34 SUBJECTIVE: [ ] This is a 73-year-old that presents in ER with abdominal distention patient has underlying liver cirrhosis. Ascites secondary to liver cirrhosis patient is scheduled for paracentesis procedure was done5 L were removed. Daughter was concerned given to patient had poor appetite prior to this admission due to abdominal pain therefore we will start her on GI soft and we will re-evaluate. She is fully awake alert oriented x3 REVIEW OF SYSTEMS CONSTITUTIONAL: Denies fevers, chills, or night sweats. No unintentional weight loss reported. NEUROLOGICAL: Denies headache, amaurosis fugax, motor weakness, sensory deficit, vertigo/spinning sensation, gait abnormalities, or tremors. ENT: No hearing loss, otalgia, otorrhea, rhinitis, rhinorrhea, hoarseness, or sore throat. CARDIOVASCULAR: Denies any exertional angina, dyspnea on exertion, orthopnea, paroxysmal nocturnal dyspnea, palpitations, life-threatening arrhythmias, claudication. PULMONARY: Denies any shortness of breath, cough, phlegm/sputum, hemoptysis, pleuritic chest pain. SLEEP: Denies morning headaches, daytime somnolence or napping. Denies difficulty falling asleep, staying asleep, waking from sleep. Denies knowledge of snoring. GASTROINTESTINAL: Denies any type of dysphagia to either liquids or solids. Denies nausea, vomiting, pyrosis, early satiety, abdominal pain, diarrhea, constipation, or changes in stool consistency or caliber. Denies coffee-ground emesis, hematemesis, hematochezia, or melanotic stools. GENITOURINARY: Denies frequency, urgency, nocturia, hematuria or incontinence (Storage/Irritative symptoms.) Low urinary stream, straining to void, urinary intermittency or hesitancy, splitting of the voiding stream, terminal dribbling. ENDOCRINOLOGIC: Denies polyuria, polydipsia, polyphagia or heat/cold intolerances. HEMATOLOGIC: Denies thrombophilia/previous clots, or coagulopathy/bleeding disorders. ONCOLOGIC: Denies personal history of malignancy. DERMATOLOGIC: Denies rashes or pruritus. PSYCHIATRIC: Denies any suicidal or homicidal ideation. Denies hallucinations. PHYSICAL EXAM GENERAL APPEARANCE: The patient is awake, alert, and oriented, in no acute cardiopulmonary distress. NEUROLOGICAL: Cranial nerves II-XII grossly intact. Motor is 5/5 in bilateral upper and lower extremities proximal to distal. No sensory deficits. HEENT: Face is symmetric. Pupils are equal and reactive. Extraocular movements are intact. NECK: Supple. No JVD. No thyromegaly. No submental, submandibular, pre- /postauricular, occipital or supraclavicular lymphadenopathy. CHEST: Normal chest expansion. No Telemetry. LUNGS: Absence of any rales, rhonchi or any wheezing. CARDIOVASCULAR: Regular. S1 and S2 normal. No appreciable rubs, murmurs or gallops. ABDOMEN: Soft, nontender, and nondistended. There is no rebound, voluntary guarding, or rigidity. : Deferred. No Sr. EXTREMITIES: Non-edematous and not cyanotic. No clubbing. Good capillary refill. SKIN: No skin breakdown. Vital Signs (last 8hr) Date Time Temp Pulse Resp B/P (MAP) Pulse Ox O2 Delivery O2 Flow Rate FiO2 08/06/24 08:20 97.9 75 20 124/62 99 Room Air 08/06/24 03:55 98 Room Air* 0 21 08/06/24 03:55 97.9 79 18 130/49 98 Room Air LABS: Laboratory: Test 08/06/24 06:08 08/06/24 05:25 08/05/24 21:07 08/05/24 18:03 Range/Units White Blood Count 4.1 #L 4.8-10.8 K/uL Red Blood Count 2.77 L 4.00-5.50 MIL/uL Hemoglobin 9.1 L 12.0-16.0 g/dL Hematocrit 26.4 L 36-48 % Mean Corpuscular Volume 95.3 79-99 fL Mean Corpuscular Hemoglobin 32.9 27.0-33.0 pg Mean Corpuscular Hemoglobin Concent 34.5 32.0-36.0 g/dL Red Cell Distribution Width 15.1 11.0-15.5 % Platelet Count 41 L 130-400 K/uL Mean Platelet Volume 12.0 H 7.5-10.5 fL Immature Granulocyte % (Auto) 0.5 0-1 % Neutrophils (%) (Auto) 48.9 40.0-77.0 % Lymphocytes (%) (Auto) 30.9 21.0-51.0 % Monocytes (%) (Auto) 15.6 H 3.0-13.0 % Eosinophils (%) (Auto) 3.6 0.0-8.0 % Basophils (%) (Auto) 0.5 0.0-5.0 % Neutrophils # (Auto) 2.0 1.8-7.7 K/uL Lymphocytes # (Auto) 1.3 1.0-4.8 K/uL Monocytes # (Auto) 0.6 0.1-1.0 K/uL Eosinophils # (Auto) 0.15 0.00-0.70 K/uL Basophils # (Auto) 0.02 0.00-0.20 K/uL Absolute Immature Granulocyte (auto 0.02 0-1 K/uL Nucleated Red Blood Cells 0.0 0.0-0.19 % White Cell Morphology Comment See comments Sodium Level 134 L 136-145 mmol/L Potassium Level 3.4 L 3.5-5.1 mmol/L Chloride Level 103 101-111 mmol/L Carbon Dioxide Level 26 21-32 mmol/L Blood Urea Nitrogen 17 7-18 mg/dL Creatinine 1.1 H 0.5-1.0 mg/dL Glomerular Filtration Rate Calc 53 >90 mL/min Random Glucose 72 70-105 mg/dL Hemoglobin A1c 5.6 4.0-6.0 % Estimated Average Glucose (eAG) 114 70-126 mg/dL Total Calcium 7.5 L 8.5-10.1 mg/dL Phosphorus Level 2.9 2.5-4.9 mg/dL Magnesium Level 1.90 1.80-2.40 mg/dL Whole Blood Glucose 71 70-110 MG/DL Bedside Glucose Comment Notified Nurse Prothrombin Time 17.7 H 9.6-11.6 SEC Prothromb Time International Ratio 1.77 H 0.85-1.15 Activated Partial Thromboplast Time 41.7 H 26.3-35.5 SEC Ammonia 34 H 11-32 umol/L Urine Color YELLOW YELLOW Urine Appearance CLEAR CLEAR Urine pH 6.0 5.0-8.0 Urine Specific Plummer 1.014 1.001-1.031 Urine Protein NEGATIVE NEGATIVE mg/dL Urine Glucose (UA) NEGATIVE NEGATIVE mg/dL Urine Ketones NEGATIVE NEGATIVE mg/dL Urine Occult Blood NEGATIVE NEGATIVE Urine Nitrate NEGATIVE NEGATIVE Urine Bilirubin NEGATIVE NEGATIVE mg/dL Urine Urobilinogen 0.2 0.2-1.0 mg/dL Urine Leukocyte Esterase 25 H NEGATIVE Sherita/uL Urine RBC 0-1 0-1 /HPF Urine WBC 2-5 H 0-1 /HPF Urine Squamous Epithelial Cells RARE 0-2 /HPF Urine Bacteria None None Seen /HPF Urine Osmolality 389 50-1200 mOsm/kg Urine Random Creatinine 144.54 H 30-135 mg/dL Urine Random Sodium < 13 L 40-220 mmol/l Test 08/05/24 16:55 Range/Units Platelet Morphology Comment See comments Total Bilirubin 2.9 H 0.2-1.0 mg/dL Aspartate Amino Transf (AST/SGOT) 108 H 10-37 U/L Alanine Aminotransferase (ALT/SGPT) 49 12-78 U/L Alkaline Phosphatase 113 50-136 U/L Total Creatine Kinase 288 H 21-232 U/L Total Protein 7.8 6.0-8.3 g/dL Albumin 2.0 L 3.5-5.0 g/dL Lipase 133 H 16-77 U/L Current Medications Medications (Trade) Dose Ordered Sig/Sregey Route PRN Reason Start Time Stop Time Status Last Admin Dose Admin Acetaminophen (TYLenol 325MG TAB) 650 mg Q6H PRN PO TEMPERATURE GREATER THAN 101.5 08/05/24 20:00 09/04/24 19:59 Hydralazine HCl (APRESOLine 20MG INJ) 10 mg Q6H PRN IV For:SBP above 160;DBP above 90 08/05/24 20:00 09/04/24 19:59 Insulin Human Regular (humuLIN R 100 UNIT/ML 3ML) INSULIN SLIDING SCAL... ACHS SQ 08/05/24 21:00 09/04/24 20:59 Lactulose (Constulose 20gm/ 30ml Udcup) 20 gm BID PO 08/05/24 21:00 09/04/24 20:59 08/05/24 20:57 20 GM Magnesium Sulfate 50 ml @ 0 mls/hr PROTOCOL PRN IV h 08/05/24 19:30 09/04/24 19:29 Morphine Sulfate (morPHINE 2MG SYG) 2 mg Q4H PRN IVP SEVERE PAIN (7-10) 08/05/24 20:00 08/12/24 19:59 Ondansetron HCl (zoFRAN 4MG INJ) 4 mg Q6H PRN IV NAUSEA/VOMITING 08/05/24 20:00 09/04/24 19:59 Pantoprazole Sodium (PROTonix 40MG TAB) 40 mg DAILY PO 08/06/24 09:00 09/05/24 08:59 Potassium Chloride 100 ml @ 100 mls/hr AD PRN IV POTASSIUM PROTOCOL 08/05/24 19:30 09/04/24 19:29 Potassium Chloride (K-Dur 10meq Sr Tab) 10 meq AD PRN PO POTASSIUM PROTOCOL 08/05/24 19:30 09/04/24 19:29 Potassium Chloride (KCl 10% Elixir 20meq/15ml) 10 meq AD PRN PO POTASSIUM PROTOCOL 08/05/24 19:30 09/04/24 19:29 DIAGNOSTICS / RADIOLOGY: [ ] ASSESSMENT: Acute decompensated liver cirrhosis, Meld -Na score 22 POA, Profound ascites secondary to liver cirrhosis POA Thrombocytopenia, POA electrolytes derangement Hypokalemia, POA Anemia secondary to liver cirrhosis POA Acute kidney injury, on chronic renal failure POA, Elevated total bilirubin Hypertension Diabetes mellitus type2 Hyperlipidemia] PLAN: [ ] Admit: Medical-surgical floor condition: Guarded Status: Full code IVF: Hep-Lock Consultants none Antibiotics: None Procedure paracentesis Home medications reviewed reconciled Labs cbc, cmp, mag+ Replace electrolytes as needed as per protocol to keep potassium above 4.0 magnesium 2.0. Home medications pending to be reviewed by RN nurse. PRN: MEDICATIONS Tylenol 650 mg po every 4 hrs for fever zofran 4 mg IV every 6 hrs for n/v Hydralazine 5 mg IV every 4 hrs systolic pressure > 160 bowel regiment: lactulose 20 gm PO BID PRN constipation Pain management: Supportive measures: DVT ppx, GI ppx all questions answered Supervising MD: Dr. Claribel Alejandro c/obey This document was generated in part using voice recognition software, occasional wrong word or sound alike substitutions may have occurred due to the inherent limitations of voice recognition software. Read the chart carefully and recognize using context, where the substitutions have occurred. Although every effort was made to edit the content, supervisor commissary production and typing errors may occur ATTESTATION BY PHYSICIAN I have seen and examined the patient. I reviewed the documentation, medical decision making, and treatment plan as noted by the mid-level provider above. I agree with the findings and plan of care. ANJALI ALEJANDRO MD, ELIZABETH NP Aug 06, 2024 08:34
[2024-08-06] MEDS: INSULIN GLARgine 100 UNITS/ML 10 ML VIAL SQ SCH (09:00)
[2024-08-06] MEDS ORDERED: ALBUTEROL 0.083% 2.5 MG/3 ML INH IH PRN (09:00)
[2024-08-06] MEDS: PoTASSium chloRIDE 10MEQ SR 10 MEQ/TAB TAB.SR.24H PO PRN (09:03)
[2024-08-06] MEDS: PANTOPrazole 40 MG TAB DR PO SCH (09:04)
[2024-08-06] MEDS: LISINOPRIL 10 MG TABLET PO SCH (09:04)
[2024-08-06] MEDS: furoSEMIDE 40 MG TABLET PO SCH (09:04)
--- NOTE | 2024-08-06 10:45 | NUR ---
U/S GD PARACENTESIS PROCEDURE PERFORMED BY DR Giulia DANIELS. PUNCTURE SITE RLQ AND PATIENT TOLERATED PROCEDURE WELL. TOTAL REMOVED 5 LITERS OF CLOUDY YELOW FLUID. END OF PROCEDURE AT 1030. CATHETER REMOVED AND DRESSING APPLIED. NO BLEEDING NOTED. REPORT GIVEN TO LUANA SUH AND PATIENT TRANSPORTED TO [facility] VIA W/C AT 1045. AAO X3 WITH NO C/O PAIN. SPECIMEN SENT TO LAB.
--- NOTE | 2024-08-06 11:33 | HMCIMG ---
ULTRASOUND ABDOMEN LIMITED INDICATION: Ascites evaluation COMPARISON: None FINDINGS/IMPRESSION: Small amount of free fluid scattered throughout all 4 quadrants of the abdomen.
[2024-08-06] MEDS: INSULIN LISpro 100 UNIT/ML 3ML SQ SCH (11:53)
[2024-08-06] MEDS ORDERED: LACTULOSE PO SCH (12:00)
--- NOTE | 2024-08-06 13:15 | DS ---
Discharge Summary Hospital Course Summary: This is a 73-year-old that presents in ER with abdominal distention patient has underlying liver cirrhosis. Ascites secondary to liver cirrhosis patient is scheduled for paracentesis procedure was done5 L were removed. Albumin was given postprocedure. Daughter was concerned given to patient had poor appetite prior to this admission due to abdominal pain therefore we will start her on GI soft and we will re-evaluate. She is fully awake alert oriented x3 Patient is tolerating diet encouraged patient to have six small meals throughout the day. Encouraged patient to ambulate as tolerated to avoid sodium intake and to continue with fluid restriction. She will have a follow-up appointment on Sunday with GI 08/11/2024 patient is clinically stable for discharge. Denied dizziness shortness for breath. Procedure(s): REASON: EVALUATE FOR PARACENTESIS ORDERING PHYSICIAN: AP DANIELS DO PROCEDURE: ABD WALL - US ABD LIMITED/ABD WALL ULTRASOUND ABDOMEN LIMITED INDICATION: Ascites evaluation COMPARISON: None FINDINGS/IMPRESSION: Small amount of free fluid scattered throughout all 4 quadrants of the abdomen. Assessment/Plan: discharged dx Acute decompensated liver cirrhosis, Meld -Na score 22 POA, Profound ascites secondary to liver cirrhosis POA s/p paracentitis removal 5 liters Thrombocytopenia, POA electrolytes derangement Hypokalemia, POA Anemia secondary to liver cirrhosis POA Acute kidney injury, on chronic renal failure POA, Elevated total bilirubin Hypertension Diabetes mellitus type2 Hyperlipidemia] PLAN: ADMISSION DATE: 08/05/2024 DISCHARGE DATE: 08/06/2024 DISPOSITION: Home CONDITION: Stable SECURITY INTELLIGENCE ANALYST(S): None FOLLOW UP APPOINTMENT(S): We will follow-up with GI on Sunday08/11/2024 as sc heduled PROCEDURES: Paracentesis L removal IMAGING (S) report attached to summary : Ultrasound abdomen MICROBIOLOGY: report attached to summary; none ACTIVITY: Ad snow as tolerated HOME MEDICATIONS reviewed remain the same CHANGES ON HOME MEDICATIONS none NEW MEDICATIONS none TEACHING: Avoid sodium intake fluid restriction 1.5 L per day. Diet GI soft six small meals Emergency instructions: The patient was instructed to present to the nearest Emergency Department or call 911 should their symptoms return or worsen. Home Medications: Active Scripts Albuterol Sulfate (Ventolin Hfa/Proventil Hfa/Proair Hfa) 90 Mcg/Puff Puff, 2 PUFF IH Q4H PRN for SHORTNESS OF BREATH/WHEEZING for 30 Days, #1 INH 2 Refills Prov:ADAM GALLO Sr., MD 12/20/22 Reported Medications Liraglutide (Victoza 2-Boyd) 0.6 Mg/0.1 Ml (18 Mg/3 Ml) Pen.injctr, 1.8 MG SQ DAILY for 30 Days, #6 ML 0 Refills 08/06/24 Lactulose (Lactulose) 10 Gram/15 Ml Solution, 15 ML PO TIDMEALS for co nstipation, #500 ML 0 Refills 08/06/24 Furosemide (Furosemide) 40 Mg Tablet, 40 MG PO BID, TAB 08/06/24 Benzonatate (Benzonatate) 100 Mg Capsule, 100 MG PO TID PRN for COUGH, CAP 08/06/24 Omeprazole (Omeprazole) 20 Mg Capsule.dr, 20 MG PO DAILY 07/08/24 Alendronate Sodium (Alendronate Sodium) 70 Mg Tablet, 1 TAB PO QWEEK 07/08/24 Atorvastatin Calcium (Atorvastatin Calcium) 40 Mg Tablet, 40 MG PO HS 07/08/24 Lisinopril (Lisinopril) 10 Mg Tablet, 10 MG PO DAILY 07/08/24 Insulin Glargine,Hum.rec.anlog (Lantus Solostar) 100 Unit/Ml (3 Ml) Insuln.pen, 35 UNITS SQ DAILY 07/08/24 Insulin Aspart (Novolog Flexpen) 100 Unit/Ml (3 Ml) Insuln.pen, 12 UNITS SQ TIDMEALS for diabetes mellitus 07/08/24 Metformin HCl (Metformin HCl) 1,000 Mg Tablet, 1000 MG PO BIDMEALS 07/08/24 Discontinued Reported Medications Furosemide (Furosemide) 20 Mg Tablet, 1 TAB PO BID 07/08/24 Liraglutide (Victoza 2-Boyd) 0.6 Mg/0.1 Ml (18 Mg/3 Ml) Pen.injctr, 1.6 MG SQ DAILY 07/08/24 [Atorvas] No Conflict Check 09/24/20 Lisinopril (Lisinopril) 20 Mg Tablet, 20 MG PO DAILY, TAB 09/24/20 [Glyburide] No Conflict Check 09/24/20 Sitagliptin Phos/Metformin HCl (Janumet 50-1,000 mg Tablet) 1 Each Tablet, 1 EACH PO BID, TAB 09/24/20 Discontinued Scripts Amoxicillin/Potassium Clav (Augmentin 500-125 Tablet) 500 Mg-125 Mg Tablet, 1 TAB PO BID for 7 Days, #14 TAB 0 Refills Prov:ANTHONY CASTRO MD 07/10/24 Lactulose (Cephulac/Enulose Soln) 20 Gram/30 Ml Soln, 20 GM PO BID, #20 ML Prov:ANTHONY CASTRO MD 07/10/24 Benzonatate (Tessalon Perles) 100 Mg Cap, 100 MG PO TID for cough, #30 CAP 2 Refills Prov:ADAM GALLO Sr., MD 12/20/22 Continued Medications: Alendronate Sodium (Alendronate Sodium) 70 Mg Tablet 1 TAB PO QWEEK Atorvastatin Calcium (Atorvastatin Calcium) 40 Mg Tablet 40 MG PO HS Furosemide (Furosemide) 40 Mg Tablet 40 MG PO BID, TAB Insulin Aspart (Novolog Flexpen) 100 Unit/Ml (3 Ml) Insuln.pen 12 UNITS SQ TIDMEALS for diabetes mellitus Insulin Glargine,Hum.rec.anlog (Lantus Solostar) 100 Unit/Ml (3 Ml) Insuln.pen 35 UNITS SQ DAILY Lactulose (Lactulose) 10 Gram/15 Ml Solution 15 ML PO TIDMEALS for constipation, #500 ML 0 Refills Liraglutide (Victoza 2-Boyd) 0.6 Mg/0.1 Ml (18 Mg/3 Ml) Pen.injctr 1.8 MG SQ DAILY for 30 Days, #6 ML 0 Refills Lisinopril (Lisinopril) 10 Mg Tablet 10 MG PO DAILY Metformin HCl (Metformin HCl) 1,000 Mg Tablet 1000 MG PO BIDMEALS Omeprazole (Omeprazole) 20 Mg Capsule.dr 20 MG PO DAILY Discontinued Medications: Albuterol Sulfate (Ventolin Hfa/Proventil Hfa/Proair Hfa) 90 Mcg/Puff Puff 2 PUFF IH Q4H PRN for SHORTNESS OF BREATH/WHEEZING for 30 Days, #1 INH 2 Refills Benzonatate (Benzonatate) 100 Mg Capsule 100 MG PO TID PRN for COUGH, CAP Time spent arranging discharge: 31-60 minutes NOMAN WHITE NP Aug 06, 2024 13:14
--- NOTE | 2024-08-06 13:19 | HMCIMG ---
US ABDOMINAL PARACENTESIS IR REASON: ASCITES, EVALUATE FOR PARACENTESIS COMPARISON: None TECHNIQUE: Ultrasound-guided paracentesis. FINDINGS: Large volume ascites. PROCEDURE: Informed consent obtained from the patient following explanation of risk, benefits, complications. Timeout performed by radiology nursing staff. Ultrasound performed and localizes best access for fluid collection. This area was prepped and draped in sterile fashion. Local anesthesia performed 10 mL 1% lidocaine subcutaneous. Under direct ultrasound guidance, pertains access gained into the peritoneal cavity. A total of 5 L removed. Catheter removed. Sterile dressing applied. Patient tolerated procedure well without evidence of complication. IMPRESSION: Ultrasound-guided paracentesis.
[2024-08-06] MEDS: ALBUMIN (HUMAN) 25% 200 ML IV SCH (13:28)
[2024-08-06 13:40] LABS: BODY FLUID RBC 11668 /cu. mm.; BODY FLUID WBC 397 /cu. mm.
[2024-08-06 14:27] LABS: SPECIMENTYPE,BODY FLUID ASCITES; TOTAL VOLUME,BODY FLUID 5000 mL
[2024-08-06 14:28] LABS: APPEARANCE BODY FLUID CLOUDY (CLEAR); COLOR,BODY FLUID ORANGE (LT YELLOW)
--- NOTE | 2024-08-06 16:30 | NUR ---
DCP Patient states lives alone in [facility] and it has a walk in shower. Address: [facility] [address] , [place] [address]. States retired and remains independent. States able to complete ADL's on her own. Denies medical devices. Denies home health services, home care provider or dialysis. PCP - Autumn Carrera MD Pharmacy - [facility]. Upon discharge, Theresa Grier, Daughter [phone] and family will assist with care, as needed. Addendum: 08/06/24 at 1636 by ANA PAULA HEBERT RN CM Amended: Links added.
[2024-08-06 16:38] LABS: BF LYMPHOCYTE 49 %; BF MACROPHAGE 38; BF MESOTHELIAL 2 %; BF MONOCYTE 1 %; BF OTHER CELLS 5; BF TOTAL CELLS COUNTED 100
--- NOTE | 2024-08-06 17:09 | CONS ---
NEPHROLOGY CONSULTATION NOTE Date/Time Patient Seen: Aug 06, 2024 1245 Reason for Consultation: Renal failure HISTORY OF PRESENT ILLNESS: This is a 73 year old female with a past medical history of Hypertension, Diabetes mellitus type2, hyperlipidemia, liver cirrhosis. Presented to the emergency department with a chief complaint of abdominal pain. S/p Paracentesis with albumin, REVIEW OF SYSTEMS: GENERAL: Negative for any nausea, vomiting, fevers, chills, or weight loss. NEUROLOGIC: Negative for any blurry vision, blind spots, double vision, facial asymmetry, dysphagia, dysarthria, hemiparesis, hemisensory deficits, vertigo, ataxia. HEENT: Negative for any head trauma, neck trauma, neck stiffness, photophobia, phonophobia, sinusitis, rhinitis. CARDIAC: Negative for any chest pain, dyspnea on exertion, paroxysmal nocturnal dyspnea, peripheral edema. PULMONARY: Negative for any shortness of breath, wheezing, COPD, or TB exposure. GASTROINTESTINAL: Negative for any abdominal pain, nausea, vomiting, bright red blood per rectum, melena. GENITOURINARY: Negative for any dysuria, hematuria, incontinence. INTEGUMENTARY: Negative for any rashes, cuts, insect bites. RHEUMATOLOGIC: Negative for any joint pains, photosensitive rashes, history of vasculitis or kidney problems. HEMATOLOGIC: Negative for any abnormal bruising, frequent infections or bleeding. PAST MEDICAL HISTORY: Hypertension, Diabetes mellitus type2, hyperlipidemia, liver cirrhosis PAST SURGICAL HISTORY: None PAST SOCIAL HISTORY: Denies any FAMILY HISTORY: Noncontributory PHYSICAL EXAM: GENERAL: Alert and oriented x 3. No acute distress. Well-nourished. EYES: EOMI. Anicteric. HENT: Moist mucous membranes. No scleral icterus. No cervical lymphadenopathy. LUNGS: Clear to auscultation bilaterally. No accessory muscle use. CARDIOVASCULAR: Regular rate and rhythm. No murmur. No JVD. ABDOMEN: Soft, non-tender and non-distended. No palpable masses. EXTREMITIES: No edema. Non-tender.?SKIN: No rashes or lesions. Warm. NEUROLOGIC: No focal neurological deficits. CN II-XII grossly intact, but not individually tested. PSYCHIATRIC: Cooperative. Appropriate mood and affect. MEDICATIONS: [ ] Current Medications Medications (Trade) Dose Ordered Sig/Sergey Route PRN Reason Start Time Stop Time Status Last Admin Dose Admin Acetaminophen (TYLenol 325MG TAB) 650 mg Q6H PRN PO TEMPERATURE GREATER THAN 101.5 08/05/24 20:00 09/04/24 19:59 Albumin Human 200 ml @ 0 mls/hr AD IV 08/06/24 10:30 08/07/24 10:29 08/06/24 13:28 100 MLS/HR Albuterol Sulfate (Proventil 0.083% 2.5mg/3ml) 2.5 mg Q4H PRN IH SHORTNESS OF BREATH/WHEEZING 08/06/24 09:00 09/05/24 08:59 Atorvastatin Calcium (LIPItor 40MG) 40 mg HS PO 08/06/24 21:00 09/05/24 20:59 Furosemide (LASix 40MG TAB) 40 mg BID PO 08/06/24 09:00 09/05/24 08:59 08/06/24 09:04 40 MG Hydralazine HCl (APRESOLine 20MG INJ) 10 mg Q6H PRN IV For:SBP above 160;DBP above 90 08/05/24 20:00 09/04/24 19:59 Insulin Glargine (LANtus 100 UNITS/ML 10 ML VIAL) 35 units DAILY SQ 08/06/24 09:00 09/05/24 08:59 Insulin Human Lispro (HumaLOG LISpro 100 UNIT/ML 3ML) 12 unit TIDMEALS SQ 08/06/24 12:00 09/05/24 11:59 Insulin Human Regular (humuLIN R 100 UNIT/ML 3ML) INSULIN SLIDING SCAL... ACHS SQ 08/05/24 21:00 09/04/24 20:59 Lactulose (Constulose 20gm/ 30ml Udcup) 20 gm BID PO 08/05/24 21:00 09/04/24 20:59 08/06/24 09:03 20 GM Lisinopril (Prinivil 10mg) 10 mg DAILY PO 08/06/24 09:00 09/05/24 08:59 08/06/24 09:04 10 MG Magnesium Sulfate 50 ml @ 0 mls/hr PROTOCOL PRN IV h 08/05/24 19:30 09/04/24 19:29 Miscellaneous Medication (Lactulose ) 15 ml TIDMEALS PO 08/06/24 12:00 08/06/24 08:50 DC Morphine Sulfate (morPHINE 2MG SYG) 2 mg Q4H PRN IVP SEVERE PAIN (7-10) 08/05/24 20:00 08/12/24 19:59 Ondansetron HCl (zoFRAN 4MG INJ) 4 mg Q6H PRN IV NAUSEA/VOMITING 08/05/24 20:00 09/04/24 19:59 Pantoprazole Sodium (PROTonix 40MG TAB) 40 mg DAILY PO 08/06/24 09:00 09/05/24 08:59 08/06/24 09:04 40 MG Potassium Chloride 100 ml @ 100 mls/hr AD PRN IV POTASSIUM PROTOCOL 08/05/24 19:30 09/04/24 19:29 Potassium Chloride (K-Dur 10meq Sr Tab) 10 meq AD PRN PO POTASSIUM PROTOCOL 08/05/24 19:30 09/04/24 19:29 08/06/24 09:03 10 MEQ Potassium Chloride (KCl 10% Elixir 20meq/15ml) 10 meq AD PRN PO POTASSIUM PROTOCOL 08/05/24 19:30 09/04/24 19:29 Vital Signs (last 8hr) Date Time Temp Pulse Resp B/P (MAP) Pulse Ox O2 Delivery O2 Flow Rate FiO2 08/06/24 15:59 98.2 82 18 126/56 98 Room Air 08/06/24 15:44 97 Room Air* 0 08/06/24 14:45 87 95/53 98 Room Air 08/06/24 13:45 79 108/56 98 Room Air 08/06/24 12:45 84 117/55 97 Room Air 08/06/24 12:15 52 127/69 98 Room Air 08/06/24 11:53 78 18 N/A Room Air 08/06/24 11:30 83 145/80 98 Room Air 08/06/24 11:30 83 145/80 95 Room Air 08/06/24 11:15 81 126/64 98 Room Air 08/06/24 11:00 98.1 84 16 117/55 97 Room Air DIAGNOSTICS / RADIOLOGY: REASON: ASCITES, EVALUATE FOR PARACENTESIS ORDERING PHYSICIAN: GRUPO NESBITT PROCEDURE: PARA ABD - US ABDOMINAL PARACENTESIS IR US ABDOMINAL PARACENTESIS IR REASON: ASCITES, EVALUATE FOR PARACENTESIS COMPARISON: None TECHNIQUE: Ultrasound-guided paracentesis. FINDINGS: Large volume ascites. PROCEDURE: Informed consent obtained from the patient following explanation of risk, benefits, complications. Timeout performed by radiology nursing staff. Ultrasound performed and localizes best access for fluid collection. This area was prepped and draped in sterile fashion. Local anesthesia performed 10 mL 1% lidocaine subcutaneous. Under direct ultrasound guidance, pertains access gained into the peritoneal cavity. A total of 5 L removed. Catheter removed. Sterile dressing applied. Patient tolerated procedure well without evidence of complication. IMPRESSION: Ultrasound-guided paracentesis. DICTATED BY: AP DANIELS DO DATE: 08/06/24 1314 REASON: EVALUATE FOR PARACENTESIS ORDERING PHYSICIAN: AP DANIELS DO PROCEDURE: ABD WALL - US ABD LIMITED/ABD WALL ULTRASOUND ABDOMEN LIMITED INDICATION: Ascites evaluation COMPARISON: None FINDINGS/IMPRESSION: Small amount of free fluid scattered throughout all 4 quadrants of the abdomen. DICTATED BY: ROSAS VIERA MD DATE: 08/06/24 1130 LABORATORY: [ ] Hematology Labs: Test 08/06/24 06:08 08/05/24 16:55 Range/Units White Blood Count 4.1 #L 4.8-10.8 K/uL Red Blood Count 2.77 L 4.00-5.50 MIL/uL Hemoglobin 9.1 L 12.0-16.0 g/dL Hematocrit 26.4 L 36-48 % Mean Corpuscular Volume 95.3 79-99 fL Mean Corpuscular Hemoglobin 32.9 27.0-33.0 pg Mean Corpuscular Hemoglobin Concent 34.5 32.0-36.0 g/dL Red Cell Distribution Width 15.1 11.0-15.5 % Platelet Count 41 L 130-400 K/uL Mean Platelet Volume 12.0 H 7.5-10.5 fL Immature Granulocyte % (Auto) 0.5 0-1 % Neutrophils (%) (Auto) 48.9 40.0-77.0 % Lymphocytes (%) (Auto) 30.9 21.0-51.0 % Monocytes (%) (Auto) 15.6 H 3.0-13.0 % Eosinophils (%) (Auto) 3.6 0.0-8.0 % Basophils (%) (Auto) 0.5 0.0-5.0 % Neutrophils # (Auto) 2.0 1.8-7.7 K/uL Lymphocytes # (Auto) 1.3 1.0-4.8 K/uL Monocytes # (Auto) 0.6 0.1-1.0 K/uL Eosinophils # (Auto) 0.15 0.00-0.70 K/uL Basophils # (Auto) 0.02 0.00-0.20 K/uL Absolute Immature Granulocyte (auto 0.02 0-1 K/uL Nucleated Red Blood Cells 0.0 0.0-0.19 % White Cell Morphology Comment See comments Platelet Morphology Comment See comments Chemistry Labs: Test 08/06/24 16:04 08/06/24 06:08 08/06/24 05:25 08/05/24 21:07 Range/Units Whole Blood Glucose 121 H 70-110 MG/DL Sodium Level 134 L 136-145 mmol/L Potassium Level 3.4 L 3.5-5.1 mmol/L Chloride Level 103 101-111 mmol/L Carbon Dioxide Level 26 21-32 mmol/L Blood Urea Nitrogen 17 7-18 mg/dL Creatinine 1.1 H 0.5-1.0 mg/dL Glomerular Filtration Rate Calc 53 >90 mL/min Random Glucose 72 70-105 mg/dL Hemoglobin A1c 5.6 4.0-6.0 % Estimated Average Glucose (eAG) 114 70-126 mg/dL Total Calcium 7.5 L 8.5-10.1 mg/dL Phosphorus Level 2.9 2.5-4.9 mg/dL Magnesium Level 1.90 1.80-2.40 mg/dL Bedside Glucose Comment Notified Nurse Ammonia 34 H 11-32 umol/L Test 08/05/24 16:55 Range/Units Total Bilirubin 2.9 H 0.2-1.0 mg/dL Aspartate Amino Transf (AST/SGOT) 108 H 10-37 U/L Alanine Aminotransferase (ALT/SGPT) 49 12-78 U/L Alkaline Phosphatase 113 50-136 U/L Total Creatine Kinase 288 H 21-232 U/L Total Protein 7.8 6.0-8.3 g/dL Albumin 2.0 L 3.5-5.0 g/dL Lipase 133 H 16-77 U/L Coagulation Labs: Test 08/05/24 21:07 Range/Units Prothrombin Time 17.7 H 9.6-11.6 SEC Prothromb Time International Ratio 1.77 H 0.85-1.15 Activated Partial Thromboplast Time 41.7 H 26.3-35.5 SEC ASSESSMENT: Acute decompensated liver cirrhosis, Meld -Na score 22 POA, Profound ascites secondary to liver cirrhosis POA s/p paracentitis removal 5 liters Thrombocytopenia, POA electrolytes derangement Hypokalemia, POA Anemia secondary to liver cirrhosis POA Acute kidney injury, on chronic renal failure POA, Elevated total bilirubin Hypertension Diabetes mellitus type2 Hyperlipidemia PLAN: Labs, diagnostic, radiologic exams reviewed and interpreted by myself and supervising physician. We have reviewed external records in detail Monitor blood pressure adjust medication doses as needed Avoid hypotensive episodes May use Dilaudid 0.5 mg IV every 6 hours as needed for severe pain Monitor blood sugars Strict intake, output, and daily weight should be monitored Please renally adjust medications Avoid nephrotoxic and nonsteroidal drugs Avoid contrast if possible Will continue to monitor renal function, anemia, electrolytes Treatment plan discussed with patient Questions were answered We have discussed with the other team physicians in detail about the care plan We will continue to monitor the patient closely Thank you for allowing us to participate in the care of this patient ATTESTATION BY PHYSICIAN I have seen and examined the patient. I reviewed the documentation, medical decision making, and treatment plan as noted by the mid-level provider above. I agree with the findings and plan of care. MOHAMUD SANDERS MD, ELIZABETH FNP Aug 06, 2024 17:09
--- NOTE | 2024-08-06 18:20 | NUR ---
DISCHARGE PT sitting in bed w/ eyes open, 0 s/s of distress noted A&Ox4, discharge instructions given written and verbally, PT verbally acknowledged understanding with no questions or concerns, I.V. DC'd w/o complications. PT escorted to POV via wheelchair by THOMAS Howe
[2024-08-06] MEDS ORDERED: atorVAStatin 40 MG TABLET PO SCH (21:00)
== END 2024-08-06 18:20 | disposition home or self-care (01) ==
LOC: EDH 15:47 → INTOOBSV 19:21 → EDHIP 19:21 → 4DH 08-06 03:55
PROVIDERS: ADMIT Internal Medicine; ATTEND Internal Medicine
DX: K74.60 Unspecified cirrhosis of liver (principal); D69.6 Thrombocytopenia, unspecified; E87.6 Hypokalemia; E80.7 Disorder of bilirubin metabolism, unspecified; D63.8 Anemia in other chronic diseases classified elsewhere; R14.0 Abdominal distension (gaseous); N17.9 Acute kidney failure, unspecified; I12.9 Hypertensive chronic kidney disease with stage 1 through stage 4 chronic kidney disease, or unspecified chronic kidney disease; E11.22 Type 2 diabetes mellitus with diabetic chronic kidney disease; N18.9 Chronic kidney disease, unspecified; E78.5 Hyperlipidemia, unspecified; Z79.899 Other long term (current) drug therapy; Z79.4 Long term (current) use of insulin; Z79.84 Long term (current) use of oral hypoglycemic drugs
CPT/HCPCS: 99284; 82550; 82570; 80053; 84300; 82140; 83690; 85025 ×2; 85610; 85730; 82948 ×5; 83935; 81001; 36415 ×2; 96365; 83036; 83735; 84100; 80048; 89051; 86850; 86900; 86901; 87071; 87205; 76705; 49083; 94664; G0378 ×5; P9047; C1729

== ENCOUNTER → 2024-09-18 | Outpatient (CLI) | payer OTHER, MEDICARE ==
[~2024-09-18] MED LIST changes: -ALBUHFA IH; -AMOX-426 PO; -ATORVAS; -BENZ-39 PO; -FURO20TA4 PO; +FURO40TA5 PO; +GADOTERATE MEGLUMINE 10 MMOL/20 ML VIAL IV ONE; -GLYBURIDE; -LACT PO; +LACT-441 PO; -LISI20TA24 PO; -SITA1TAB6 PO
--- NOTE | 2024-09-18 12:14 | HMCIMG ---
MR PELVIS W/WO CON HISTORY: Rectal mass COMPARISON: None TECHNIQUE: MRI of the pelvis was performed utilizing multiple pulse sequences in axial, coronal and sagittal planes. Patient was given 12 cc of Clariscan through intravenous route. FINDINGS: There is small to moderate ascites. Evaluation of rectal mass is limited with MRI. Colonoscopy correlation is recommended. Uterus is heterogeneous may be related to fibroid uterus measuring 6.6 x 2.8 cm. Bladder is moderately distended. No definite pelvic adenopathy is seen. IMPRESSION: 1. Small to moderate ascites. Possible fibroid uterus. Evaluation for rectal mass is limited.
== END | disposition home or self-care (01) ==
LOC: RAH 10:36
PROVIDERS: ATTEND Surgery Surgical Oncology
DX: R18.8 Other ascites (principal); K62.89 Other specified diseases of anus and rectum; K74.60 Unspecified cirrhosis of liver
CPT/HCPCS: 72197; A9575

== ENCOUNTER → 2024-09-23 | Outpatient (CLI) | payer OTHER, MEDICARE ==
[~2024-09-23] MED LIST changes: -GADOTERATE MEGLUMINE 10 MMOL/20 ML VIAL IV ONE; +IOHEXOL-350 75 ML VIAL IV ONE
--- NOTE | 2024-09-23 11:22 | HMCIMG ---
Exam Type: CT ABDOMEN/PELVIS W/WO CONTRAS Clinical Information: Other specified diseases of anus and rectum Comparison: None Contrast: 100 cc's Isovue 370 IV, no complications or adverse reactions CT Dose Index (CTDI): 31.60 mGy Dose Length Product (DLP): 1740.80 total mGy-cm Findings: No evidence of nephro or ureterolithiasis is found. No hydronephrosis or ureteral dilatation is seen. Moderate left pleural effusion The stomach is unremarkable. It shows no wall thickening. No gross ulceration is seen. It is not overly distended. There are no surrounding inflammatory changes. No wall lesions are identified to suggest cancer. The spleen is unremarkable. It is not enlarged. The pancreas shows normal anatomy. It is not fatty replaced. It shows no lesions. The pancreatic duct is not dilated. There is evidence of cholelithiasis. No evidence of acute or chronic inflammation is seen. The adrenal glands are unremarkable. There is no enlargement. No lesions are noted. The liver is irregular suggestive of chronic liver disease and there is moderate ascites also suggestive of liver disease. The appendix is unremarkable. It shows no evidence of inflammation. No appendicolith is seen. The small bowel is unremarkable. There is no evidence of dilatation to suggest obstruction. No evidence of adynamic ileus is seen. There is no small bowel wall thickening to suggest enteritis. Left rectosigmoid wall lesion measuring 27 mm in consistent with given history. The urinary bladder is unremarkable. There is no wall thickening to suggest tumor or inflammation. There are no intraluminal calculi. There are no diverticula. There is no evidence of chronic bladder outlet obstruction. There is no evidence of urinary bladder distention to suggest urinary retention. The other pelvic structures are unremarkable. The bony and vascular structures are unremarkable for the patient's age. IMPRESSION: Left pleural effusion. Chronic liver disease with ascites. Cholelithiasis. Lesion of the left side of the rectosigmoid portion of the colon consistent with given history of rectal cancer. This study was performed using dose reduction techniques to include automated exposure control and/or adjustment of the mA and/or kV according to patient size.
== END | disposition home or self-care (01) ==
LOC: RAH 08:03
PROVIDERS: ATTEND Surgery Surgical Oncology
DX: K80.20 Calculus of gallbladder without cholecystitis without obstruction (principal); K76.9 Liver disease, unspecified; K63.9 Disease of intestine, unspecified; K74.60 Unspecified cirrhosis of liver; R18.8 Other ascites; J90 Pleural effusion, not elsewhere classified; K62.89 Other specified diseases of anus and rectum
CPT/HCPCS: 74178; Q9967